=== PATIENT | male | born 1965 | race Caucasian/White ===

== ENCOUNTER → 2019-02-08 | Outpatient (CLI) | payer BC ==
[~2019-02-08] MED LIST: CPAP MISCELL; CRESTOR10 MG PO; CYCLOBENZAPRINE5 MG PO; IBUPROFEN 200200 M1 PO; LIPITOR40 MG PO; LISINOPRIL20 MG PO; LOSARTAN POTASS50 MG PO; MEDROLDOSEPACK PO; NOHOMEMEDICATIONS; NORCO 5-325 TA1 EACH PO; NORCO 7.5-3251 EACH PO; NORVASC5 MG PO
== END ==
LOC: M.PC 13:40
DX: M43.16 Spondylolisthesis, lumbar region (principal); M51.16 Intervertebral disc disorders with radiculopathy, lumbar region; M48.061 Spinal stenosis, lumbar region without neurogenic claudication; F17.200 Nicotine dependence, unspecified, uncomplicated; Z88.8 Allergy status to other drugs, medicaments and biological substances

== ENCOUNTER → 2019-10-04 | Outpatient (CLI) | payer BC ==
[~2019-10-04] MED LIST changes: +TYLENOL WITH CO1 TA1 PO
== END ==
LOC: M.PC 08:40 → M.RAD 08:42 → M.PC 08:42
DX: M17.11 Unilateral primary osteoarthritis, right knee (principal); M47.26 Other spondylosis with radiculopathy, lumbar region; M51.16 Intervertebral disc disorders with radiculopathy, lumbar region; Z98.890 Other specified postprocedural states